=== PATIENT | female | born 1940 | race Caucasian/White ===

== ENCOUNTER 2021-08-02 09:04 | Emergency (ER) | payer OTHER ==
[~2021-08-02] VITALS: Ht 157.5 cm; Wt 54.9 kg
[2021-08-02] MEDS ORDERED: COZAAR50 MG PO (09:28)
[2021-08-02] MEDS ORDERED: LIPITOR40 M1 PO (09:29)
[2021-08-02] MEDS ORDERED: GLUMETZA500 MG PO (09:29)
== END 2021-08-02 12:36 | disposition home or self-care (01) ==
LOC: ER 09:04
DX: R42 Dizziness and giddiness (principal); I10 Essential (primary) hypertension; E03.9 Hypothyroidism, unspecified; E11.9 Type 2 diabetes mellitus without complications

== ENCOUNTER 2022-07-31 20:38 | Emergency (ER) | payer OTHER ==
[~2022-07-31] VITALS: Ht 157.5 cm; Wt 51.7 kg
[~2022-07-31 20:38] MED LIST: COZAAR50 MG PO; GLUMETZA500 MG PO; LIPITOR40 M1 PO
[2022-07-31] MEDS ORDERED: NORVASC5 MG (22:49)
== END 2022-08-01 02:23 ==
LOC: ER 20:38
DX: I10 Essential (primary) hypertension (principal)

== ENCOUNTER 2022-11-02 08:41 | Emergency (ER) | payer OTHER ==
[~2022-11-02] VITALS: Ht 157.5 cm; Wt 53.5 kg
[~2022-11-02 08:41] MED LIST changes: +NORVASC5 MG
== END 2022-11-02 12:27 | disposition home or self-care (01) ==
LOC: ER 08:41
DX: S46.912A Strain of unspecified muscle, fascia and tendon at shoulder and upper arm level, left arm, initial encounter (principal); W18.39XA Other fall on same level, initial encounter; Y93.9 Activity, unspecified; Y92.89 Other specified places as the place of occurrence of the external cause; Y99.9 Unspecified external cause status

== ENCOUNTER 2024-02-04 09:22 | Emergency (ER) | payer OTHER ==
[~2024-02-04] VITALS: Ht 157.5 cm; Wt 50.3 kg
[2024-02-04] MEDS ORDERED: FAMOTIDINE/PF 20 MG in 0.9 % SODIUM CHLORIDE 8 ML IV PUSH STA (10:06)
[2024-02-04] MEDS ORDERED: FAMOTIDINE/PF 20 MG/2 ML VIAL ONE (10:25)
[2024-02-04 10:49] LABS: HEMATOCRIT 40.6 % (36.0-45.00); HEMOGLOBIN 13.9 g/dL (12.0-15.00); MEAN CELL VOLUME 94.4 fL (80.00-100.00); MEAN CORPUSCULAR HEMOGLOBIN 32.4 pg (27.00-32.0); MEAN CORPUSCULAR HGB CONC 34.3 g/dl (32.0-36.0); PLATELET COUNT 272 K/uL (150-450); RED CELL DISTRIBUTION WIDTH 13.6 % (11.5-14.5)
[2024-02-04 11:06] LABS: CALCIUM 9.9 mg/dL (8.5-10.1); CREATININE SERUM 0.84 mg/dL (0.55-1.02); GFR 64.75; POTASSIUM 4.43 mEq/L (3.5-5.1)
== END 2024-02-04 14:21 | disposition home or self-care (01) ==
LOC: ER 09:23
PROVIDERS: Emergency Medicine
DX: R10.9 Unspecified abdominal pain (principal); I10 Essential (primary) hypertension; E11.9 Type 2 diabetes mellitus without complications; Z79.84 Long term (current) use of oral hypoglycemic drugs
CPT/HCPCS: 36415; 76700; 96365; 99284; J3490